=== PATIENT | female | born 1990 | race Caucasian/White ===

== ENCOUNTER 2023-03-08 11:31 | Inpatient (IN) ==
[2023-03-08] MEDS ORDERED: LIDOCAINE 1% LOCAL 20 ML VIAL ONE (11:59)
[2023-03-08] MEDS ORDERED: OXYTOCIN 10 UNITS/ML VIAL ONE (12:05)
[2023-03-08] MEDS ORDERED: LIDOCAINE 1% LOCAL 20 ML VIAL INFIL PRN (12:08)
[2023-03-08] MEDS ORDERED: OXYTOCIN 30 UNITS/500 ML BAG IV PRN ×2 (12:08→12:55)
[2023-03-08] MEDS ORDERED: LACTATED RINGER'S 1,000 ML IV PRN (12:08)
[2023-03-08] MEDS ORDERED: METHYLERGONOVINE MALEATE 0.2 MG/ML AMP IM PRN (12:08)
[2023-03-08] MEDS ORDERED: Patient's HEIGHT &/or WEIGHT Needed SCH (12:15)
[2023-03-08] MEDS ORDERED: Patient's ALLERGY Info needs ENTERED SCH (12:15)
[2023-03-08 12:38] LABS: Hematocrit (blood only) 42.3 % (37.0-47.0); Hemoglobin 14.7 g/dl (12.0-16.0); Mean Corpuscular Hemoglobin 32.5 pg (25.0-34.0); Mean Corpuscular Hgb Conc 34.8 g/dL (32.0-36.0); Mean Corpuscular Volume 93.4 fL (80.0-100.0); Mean Platelet Volume 11.5 fL (9.4-12.4); Platelet Count 175 K/uL (130-400); RDW Standard Deviation 44.2 fL (36.4-46.3); Red Blood Count 4.53 M/uL (4.20-5.40); White Blood Count 9.16 K/ul (4.8-10.8)
[2023-03-08] MEDS ORDERED: HYDROCORTISONE ACETATE 25 MG SUPP PR PRN (12:55)
[2023-03-08] MEDS ORDERED: bisacodyL 10 MG SUPP PR PRN (12:55)
[2023-03-08] MEDS ORDERED: miSOPROStoL 200 MCG TAB PR ONE (12:55)
[2023-03-08] MEDS ORDERED: ACETAMINOPHEN 325 MG TAB PO PRN (12:55)
[2023-03-08] MEDS ORDERED: DIPHTHERIA/TETANUS/PERTUSSIS Vaccine (Tdap, Age 7+yrs) 0.5mL SYR/VL IM ONE (12:55)
[2023-03-08] MEDS ORDERED: OXYTOCIN 10 UNITS/ML 10ML VIAL IM ONE (12:55)
--- NOTE | 2023-03-08 14:06 | Delivery Summary ---
DELIVERY NOTE: The patient presented to labor and delivery fully dilated with bulging membranes. She went quickly to deliver a live male in left occiput anterior presentation. There was a body cord. Second-degree midline episiotomy was performed to facilitate delivery. The patient had no pain medicine on board. was delivered and placed on mother's abdomen. Delayed cord clamp was performed. Cord blood was obtained. Peds was in the room and available for delivery. Infant's information including weight and Apgars, not vitals, are in the pediatric record. Placenta was spontaneously delivered. Inspection of the perineum showed a second-degree episiotomy that was performed, which was repaired with Vicryl in layers. Rectal exam post- repair showed good sphincter tone. No sutures are palpated in the rectum. Estimated blood loss was 500 mL. All instruments were removed from the vagina and accounted for x2 including sponges, needles, and retractors. The patient is sent to recovery in stable condition. Job ID: [id number] [facility]
[2023-03-08] MEDS ORDERED: IBUPROFEN 600 MG TAB PO ONE (15:07)
[2023-03-08] MEDS: IBUPROFEN 600 MG TAB PO PRN ×2 (19:08→23:24)
[2023-03-08] MEDS: DOCUSATE SODIUM 100 MG CAP PO SCH (19:08)
[2023-03-08] MEDS: BENZOCAINE 20% AER SPR 82.5 GM CAN EXT PRN (19:08)
[2023-03-09] MEDS: IBUPROFEN 600 MG TAB PO PRN ×3 (03:30→15:30)
[2023-03-09 07:30] LABS: Hematocrit (blood only) 37.2 % (37.0-47.0); Hemoglobin 12.9 g/dl (12.0-16.0); Mean Corpuscular Hemoglobin 32.2 pg (25.0-34.0); Mean Corpuscular Hgb Conc 34.7 g/dL (32.0-36.0); Mean Corpuscular Volume 92.8 fL (80.0-100.0); Mean Platelet Volume 11.5 fL (9.4-12.4); Platelet Count 154 K/uL (130-400); Red Blood Count 4.01 M/uL (4.20-5.40); White Blood Count 12.68 K/ul (4.8-10.8)
[2023-03-09] MEDS ORDERED: PRENATAL VITAMIN 1 TAB PO SCH (08:00)
--- NOTE | 2023-03-09 08:56 | Obstetrical Progress Note ---
Date of Service March 09, 2023 Subjective Ambulation: ambulating normally Voiding: no voiding problems Passing Gas:: Yes Diet Tolerance:: regular diet Lochia:: Small Feeding Type:: breast feeding Current Pain Level(1-10): 0 doing well. plans for d/c Physical Exam Constitutional WD/WN, vitals as above Gastrointestinal (Abdomen) Inspection/Auscultation: abdomen normal to inspection abdomen soft and non-tender. fundus firm Musculoskeletal Extremities: extremities normal to inspection Skin no rashes, warm and dry Neurologic patellar DTR's 2+ bilat, sensation intact Psychiatric A+Ox3, euthymic affect Results & Data Vital Signs (Past 12 Hours) Vital Signs Temp Pulse Resp BP 03/09/23 03:19 36.5 C 64 18 137/77 03/08/23 23:45 37 C 65 18 117/75 Laboratory Results 03/08/23 03/08/23 03/09/23 12:15 Unknown 07:03 WBC 9.16 12.68 H RBC 4.53 4.01 L Hgb 14.7 12.9 Hct 42.3 37.2 MCV 93.4 92.8 MCH 32.5 32.2 MCHC 34.8 34.7 RDW Std Deviation 44.2 44.0 RDW Coeff of [place] 13.0 13.0 Plt Count 175 154 MPV 11.5 11.5 SARS-CoV-2, RNA, NAAT NEGATIVE
[2023-03-09] MEDS: DOCUSATE SODIUM 100 MG CAP PO SCH (09:23)
[2023-03-09] MEDS: BENZOCAINE 20% AER SPR 82.5 GM CAN EXT PRN (15:30)
[2023-03-09] MEDS ORDERED: bisacodyL 5 MG TABEC PO SCH (20:00)
--- NOTE | 2023-03-12 07:27 | Coding Query ---
CODING QUERY To promote full compliance with coding requirements relating to patient care, provider participation is requested in all cases of city assessor uncertainty. Please assist us with the question(s) below: Coding Question(s): Please document weeks of gestation [id number] Physician's Response(s): Thank you Staciramone Soria Principal Diagnosis: "that condition established after study, to be chiefly responsible for occasioning the admission of the patient to the hospital for care." Co-Existing Principal Diagnosis: "when two or more diagnoses equally meet the criteria for principal diagnosis as determined by the circumstances of admission, diagnostic work up, and/or therapy provided, and the Alphabetic Index, Tabular List, or another coding guideline does not provide sequencing direction, any one of the diagnoses may be sequenced first." "When the physician has documented what appears to be a current diagnosis in the body of the record, but has not included the diagnosis in the final diagnostic statement, the physician should be asked whether the diagnosis should be added." (Source [facility]oding [facility] 2 QTR90. p3-4) DEBBIE
== END 2023-03-09 16:20 | disposition home or self-care (01) | DRG 807 ==
LOC: OPB 11:31 → 4S1 11:32 → 4E2 15:49